=== PATIENT | male | born 1935 | race Caucasian/White ===

== ENCOUNTER 2018-02-19 11:53 | Inpatient (IN) | payer MEDICARE, BC ==
[~2018-02-19] VITALS: Ht 188 cm; Wt 77.7 kg
[2018-02-19 12:24] LABS: BASO # 0.1 (0.0-0.2); BASO % 0.5 % (0.0-2.0); EOS # 0.1 (0.0-0.7); EOS % 1.1 % (0-4.0); GRAN # 7.6 (1.4-6.5); GRAN % 74.7 % (42.2-75.2); HEMOGLOBIN 12.6 g/dl (13.5-18.0); LYMPH # 1.4 (1.2-3.4); MEAN CELL VOLUME 89 fl (80.0-100.0); MEAN CORPUSCULAR HEMOGLOBIN 29 pg (27.0-31.0); MEAN CORPUSCULAR HGB CONC 32 g/dl (33.0-37.0); MEAN PLATELET VOLUME 9.3 fl (7.4-10.4); MONO % 9.3 % (1.7-9.3); PLATELET COUNT 194 K/mm3 (130-400); RED BLOOD COUNT 4.37 M/mm3 (4.20-5.60); REDCELL DISTRIBUTION WIDTH-CV 14.8 % (11.5-14.5)
[2018-02-19 12:29] LABS: INR 1.1 (0.8-3.0); PROTHROMBIN TIME 12.9 SECONDS (9.7-12.8)
[2018-02-19 12:32] LABS: PARTIAL THROMBOPLASTIN TIME 31.6 SECONDS (26.0-37.0)
[2018-02-19 12:49] LABS: ALBUMIN 3.2 gm/dL (3.5-5.0); BILIRUBIN,TOTAL 0.8 mg/dL (0.0-1.0); CALCIUM 8.6 mg/dL (8.4-10.2); CREATININE, serum 1.62 mg/dL (0.66-1.25); MAGNESIUM 1.9 mg/dL (1.6-2.3); PHOSPHOROUS 3.2 mg/dL (2.5-4.5); POTASSIUM 3.7 mmol/L (3.4-5.0); TOTAL PROTEIN 7.2 gm/dL (6.4-8.2)
[2018-02-19 13:05] LABS: TROPONIN-I 0.056 ng/mL (0.000-0.034)
[2018-02-19 17:00] VITALS: BP 137/72; PULSE 76; TEMP 97.4
[2018-02-19 20:48] VITALS: BP 143/74; PULSE 75; TEMP 98.8
[2018-02-20 00:27] VITALS: BP 127/69; PULSE 78; TEMP 99.4
[2018-02-20 04:43] VITALS: BP 92/80; PULSE 82; TEMP 98.7
[2018-02-20 07:17] LABS: BASO # 0.1 (0.0-0.2); BASO % 0.6 % (0.0-2.0); EOS # 0.3 (0.0-0.7); EOS % 3.4 % (0-4.0); GRAN # 5.2 (1.4-6.5); GRAN % 62.5 % (42.2-75.2); LYMPH % 24.2 % (20.0-51.0); MEAN CELL VOLUME 91 fl (80.0-100.0); MEAN CORPUSCULAR HGB CONC 32 g/dl (33.0-37.0); MEAN PLATELET VOLUME 9.4 fl (7.4-10.4); MONO # 0.7 (0.1-0.6); MONO % 8.8 % (1.7-9.3); PLATELET COUNT 155 K/mm3 (130-400); RED BLOOD COUNT 3.58 M/mm3 (4.20-5.60)
[2018-02-20 07:20] VITALS: BP 127/69; PULSE 79; TEMP 98.3
[2018-02-20 07:22] LABS: HEMATOCRIT 32.4 % (42.0-52.0); HEMOGLOBIN 10.4 g/dl (13.5-18.0); MEAN CORPUSCULAR HEMOGLOBIN 29 pg (27.0-31.0)
[2018-02-20 07:29] LABS: CALCIUM 8.1 mg/dL (8.4-10.2); CHOLESTEROL RISK RATIO 4.9; CREATININE, serum 1.32 mg/dL (0.66-1.25); POTASSIUM 3.8 mmol/L (3.4-5.0)
[2018-02-20 11:05] VITALS: BP 131/83; PULSE 83; TEMP 98.6
[2018-02-20 15:25] VITALS: BP 136/78; PULSE 79; TEMP 98.9
[2018-02-20 20:58] VITALS: BP 145/78; PULSE 65; TEMP 98.2
[2018-02-21 01:03] VITALS: BP 144/75; PULSE 75; TEMP 98.3
[2018-02-21 04:21] VITALS: BP 119/87; PULSE 71; TEMP 97.4
[2018-02-21 06:57] LABS: BASO % 0.5 % (0.0-2.0); EOS # 0.4 (0.0-0.7); EOS % 4.6 % (0-4.0); GRAN # 4.8 (1.4-6.5); GRAN % 61.3 % (42.2-75.2); HEMOGLOBIN 10.6 g/dl (13.5-18.0); LYMPH % 24.7 % (20.0-51.0); MEAN CELL VOLUME 90 fl (80.0-100.0); MEAN CORPUSCULAR HEMOGLOBIN 29 pg (27.0-31.0); MEAN CORPUSCULAR HGB CONC 32 g/dl (33.0-37.0); MEAN PLATELET VOLUME 9.8 fl (7.4-10.4); MONO # 0.7 (0.1-0.6); MONO % 8.6 % (1.7-9.3); PLATELET COUNT 173 K/mm3 (130-400); RED BLOOD COUNT 3.63 M/mm3 (4.20-5.60)
[2018-02-21 07:00] LABS: HEMATOCRIT 32.7 % (42.0-52.0)
[2018-02-21 07:08] VITALS: BP 114/87; PULSE 86; TEMP 97.4
[2018-02-21 07:11] LABS: CALCIUM 8.1 mg/dL (8.4-10.2); CREATININE, serum 1.26 mg/dL (0.66-1.25); POTASSIUM 4.1 mmol/L (3.4-5.0)
[2018-02-21 11:20] VITALS: BP 118/62; PULSE 71; TEMP 98.3
[2018-02-21 15:07] VITALS: BP 111/80; PULSE 70; TEMP 98.6
[2018-02-21 20:02] VITALS: BP 123/77; PULSE 73; TEMP 99.2
[2018-02-22 01:50] VITALS: BP 118/60; PULSE 73; TEMP 99.3
[2018-02-22 05:39] VITALS: BP 133/62; PULSE 72; TEMP 99
[2018-02-22 07:13] VITALS: BP 134/61; PULSE 70; TEMP 98.2
[2018-02-22 09:14] LABS: BASO % 0.6 % (0.0-2.0); EOS # 0.2 (0.0-0.7); EOS % 3.1 % (0-4.0); GRAN # 4.4 (1.4-6.5); GRAN % 68.9 % (42.2-75.2); HEMATOCRIT 32.9 % (42.0-52.0); HEMOGLOBIN 10.7 g/dl (13.5-18.0); LYMPH # 1.2 (1.2-3.4); LYMPH % 18.3 % (20.0-51.0); MEAN CELL VOLUME 90 fl (80.0-100.0); MEAN CORPUSCULAR HEMOGLOBIN 29 pg (27.0-31.0); MEAN CORPUSCULAR HGB CONC 33 g/dl (33.0-37.0); MEAN PLATELET VOLUME 9.6 fl (7.4-10.4); MONO # 0.6 (0.1-0.6); MONO % 8.6 % (1.7-9.3); PLATELET COUNT 181 K/mm3 (130-400); RED BLOOD COUNT 3.65 M/mm3 (4.20-5.60); REDCELL DISTRIBUTION WIDTH-CV 14.6 % (11.5-14.5)
[2018-02-22 09:24] LABS: CALCIUM 8.1 mg/dL (8.4-10.2); CREATININE, serum 1.08 mg/dL (0.66-1.25); POTASSIUM 3.8 mmol/L (3.4-5.0)
[2018-02-22 12:20] VITALS: BP 150/80; PULSE 77; TEMP 98.6
[2018-02-22 15:11] VITALS: BP 146/85; PULSE 62; TEMP 99
[2018-02-22 20:15] VITALS: BP 142/68; PULSE 80; TEMP 99.4
[2018-02-23 04:27] VITALS: BP 143/66; PULSE 80; TEMP 98.5
[2018-02-23 07:01] VITALS: BP 127/58; PULSE 69; TEMP 98.6
[2018-02-23 07:08] LABS: BASO % 0.6 % (0.0-2.0); EOS # 0.3 (0.0-0.7); EOS % 3.9 % (0-4.0); GRAN # 4.7 (1.4-6.5); GRAN % 65.4 % (42.2-75.2); HEMOGLOBIN 10.8 g/dl (13.5-18.0); LYMPH # 1.5 (1.2-3.4); LYMPH % 20.7 % (20.0-51.0); MEAN CELL VOLUME 88 fl (80.0-100.0); MEAN CORPUSCULAR HEMOGLOBIN 29 pg (27.0-31.0); MEAN CORPUSCULAR HGB CONC 33 g/dl (33.0-37.0); MEAN PLATELET VOLUME 9.8 fl (7.4-10.4); MONO # 0.6 (0.1-0.6); MONO % 8.8 % (1.7-9.3); PLATELET COUNT 183 K/mm3 (130-400); RED BLOOD COUNT 3.75 M/mm3 (4.20-5.60); REDCELL DISTRIBUTION WIDTH-CV 14.5 % (11.5-14.5)
[2018-02-23 07:10] LABS: HEMATOCRIT 32.8 % (42.0-52.0)
[2018-02-23 07:20] LABS: CALCIUM 8.4 mg/dL (8.4-10.2); CREATININE, serum 1.16 mg/dL (0.66-1.25)
[2018-02-23 11:13] VITALS: PULSE 85; TEMP 97.3
[2018-02-23] MEDS ORDERED: LIPITOR20 MG PO (11:37)
[2018-02-23] MEDS ORDERED: CEPHALEXIN500 M1 PO (11:37)
[2018-02-23] MEDS ORDERED: ASPIRIN E.C. 8181 MG PO (11:38)
[2018-02-23] MEDS ORDERED: DAKIN'S 0.500 ML/1 B TOP (11:38)
[2018-02-23 12:13] VITALS: BP 127/58; PULSE 69; TEMP 98.6
== END 2018-02-23 15:15 | DRG 281 ==
LOC: COL.ER 11:53 → MEDICAL 14:18
PROVIDERS: Emergency Medicine; Hospitalist; Physician Assistant
DX: I21.4 Non-ST elevation (NSTEMI) myocardial infarction (principal); N17.9 Acute kidney failure, unspecified; L03.317 Cellulitis of buttock; Z66 Do not resuscitate; L89.329 Pressure ulcer of left buttock, unspecified stage; L89.229 Pressure ulcer of left hip, unspecified stage; E86.0 Dehydration; Z87.891 Personal history of nicotine dependence; M75.91 Shoulder lesion, unspecified, right shoulder
CPT/HCPCS: 99222-AI; 99231-AI; 99232-AI; 99239; A4216; J0696; J1644; J7030

== ENCOUNTER 2019-05-01 07:30 | Day surgery (SDC) | payer MEDICARE, BC ==
[~2019-05-01] VITALS: Ht 188 cm; Wt 90.9 kg
[~2019-05-01 07:30] MED LIST: ASPIRIN E.C. 8181 MG PO; CEPHALEXIN500 M1 PO; DAKIN'S 0.500 ML/1 B TOP; LIPITOR20 MG PO
[2019-05-01 08:18] VITALS: BP 135/68; PULSE 67; TEMP 98.1
[2019-05-01] MEDS ORDERED: COLACE 100100 MG/CAP PO (08:38)
[2019-05-01] MEDS ORDERED: DUREZOL 5 ML5 ML OU (08:39)
[2019-05-01] MEDS ORDERED: LEXAPRO 10MG10 MG PO (08:39)
[2019-05-01] MEDS ORDERED: GOOD NEIGH1200 MG/15 PO (08:40)
[2019-05-01] MEDS ORDERED: MULTIPLE VITAMI1 TA5 PO (08:41)
[2019-05-01 09:45] VITALS: BP 132/61; PULSE 61; TEMP 97.6
--- NOTE | 2019-05-01 09:45 | NUR ---
The patient arrived back to [facility] from operating room at this time. Post operative vital signs were started at this time. The patient has a dressing to his right shoulder that appears clean, dry and intact. The patient denies any pain or nasuea at this time. The patient does not want to try any food or drink at this time. Family brought back to be at his bedside. Will continue to monitor the patient.
[2019-05-01 10:00] VITALS: BP 146/64; PULSE 60
--- NOTE | 2019-05-01 10:00 | NUR ---
The patient appears to be resting comfortably on the cart at this time. The patinet appear alert and continues to deny any pain. The patient does not want to try anything to eat or drink at this time. Family remains at his bedside. Will continue to monitor the patient.
[2019-05-01 10:20] VITALS: BP 154/69; PULSE 61
--- NOTE | 2019-05-01 10:20 | NUR ---
The patient agrees to try some orange juice at this time. Vital signs appear stable. The patient denies any pain or nausea at this time. Post operative vital signs were started at this time. Call light is within reach. Will continue to monitor the patient.
[2019-05-01 10:40] VITALS: BP 144/65; PULSE 63
--- NOTE | 2019-05-01 10:40 | NUR ---
Discharge instructions were reviewed with the patient and his son at this time. The son and the home care attendant from [facility] both verbalized understanding and have no questions for the nurse at this time. The patient's IV to his right forearm was removed and a pressure dressing was applied to the site. The home care attendant is going to go pull the transportation vehicle up while the nurse assists the patient to get dressed.
--- NOTE | 2019-05-01 11:00 | NUR ---
The patient was assisted to get dressed and then transferred to his wheelchair with the help of two nurses and appeared to tolerate the activity well. The patient's lawn care professional from [facility] is present with their transportation vehicle to transfer him back to their facility.
== END 2019-05-01 11:00 ==
LOC: SDCO 07:30
DX: C44.612 Basal cell carcinoma of skin of right upper limb, including shoulder (principal); F32.9 Major depressive disorder, single episode, unspecified; F03.90 Unspecified dementia, unspecified severity, without behavioral disturbance, psychotic disturbance, mood disturbance, and anxiety; N18.9 Chronic kidney disease, unspecified; E78.5 Hyperlipidemia, unspecified; I25.2 Old myocardial infarction; G89.29 Other chronic pain
CPT/HCPCS: J0690; J1100; J2250; J2405; J2704